=== PATIENT | male | born 1960 | race Caucasian/White ===

== ENCOUNTER → 2025-04-14 | Outpatient (CLI) | payer MEDICARE ==
[2025-04-14 12:18] LABS: BASO # 0.1 10*3/uL (0.0-0.1); BASO % 0.9 % (0.0-1.0); EOS # 0.1 10*3/uL (0.0-0.4); EOS % 0.8 % (1.0-4.0); MEAN CELL VOLUME 92.5 fl (80.0-94.0); MEAN CORPUSCULAR HGB 29.8 pg (27.0-31.0); MEAN PLATELET VOLUME 9.3 fl (9.6-12.3); MONO # 0.8 10*3/uL (0.1-1.0); MONO % 8.6 % (3.0-9.0); NEUT # 6.0 10*3/uL (2.3-7.9); NEUT % 65.3 % (47.0-73.0); NUCLEATED RED BLOOD CELL 0.0 % (0.0-0.0); NUCLEATED RED BLOOD CELL 0.0 10*3/uL (0.0-0.0); PLATELET COUNT AUTOMATED 198 10*3/uL (130-400); RED CELL DISTRI WIDTH 12.7 % (0-14.5)
[2025-04-14 13:15] LABS: BUN 21 mg/dl (9-23); FREE T4 1.21 ng/dl (0.89-1.76); LDL CHOLESTEROL 33 mg/dL (9-159); SGPT/ALT 29 U/L (5-49)
== END | disposition home or self-care (01) ==
LOC: LAB 11:46
PROVIDERS: ATTEND Internal Medicine
DX: Z12.5 Encounter for screening for malignant neoplasm of prostate (principal); E11.69 Type 2 diabetes mellitus with other specified complication